=== PATIENT | male | born 1955 | race Caucasian/White ===

== ENCOUNTER 2022-02-24 06:06 | Emergency (ER) | payer OTHER, MEDICAID ==
[~2022-02-24] VITALS: Ht 177.8 cm; Wt 81.6 kg
[2022-02-24 06:10] VITALS: BP_SYST 188
--- NOTE | 2022-02-24 06:23 | NUR ---
PT HERE C/O RT LEG PAIN WITH PURULENT FOUL SMELLING DRAINAGE PER PT HAS BEEN GOING FOR MONTHS NOW. PT DENIES TRAUMA. HE STATED THAT HE IS SELF MEIDCATING AND FOR COUPLE OF DAYS HAS BEEN WORST. NOTED YELLOW DISCOLRATION ON RT LOWER LEG PMH:APPENDECTOMY PT AAOX4, NO SOB NOTED AND NAD. PENDING MD BOOTH
--- NOTE | 2022-02-24 06:40 | NUR ---
Patient to ER bed KELLEY to gown for evaluation. Side rails up. Report given to FRANCY ESTRADA.
--- NOTE | 2022-02-24 06:41 | NUR ---
ER at bedside examining patient.
[2022-02-24] MEDS ORDERED: cefTRIAXone 1 GM in LIDOCAINE 1%, 20 ML MDV 2.1 ML IM ONE (07:00)
[2022-02-24] MEDS ORDERED: FURO-149 PO (07:02)
[2022-02-24] MEDS ORDERED: IBUP-1969 PO (07:02)
[2022-02-24] MEDS ORDERED: SULF1TAB48 PO (07:02)
--- NOTE | 2022-02-24 07:17 | NUR ---
Report given to SEAN Richard to assume care of patient at this time.
--- NOTE | 2022-02-24 07:54 | NUR ---
MEDICATED ORDERED, WILL MONITOR FOR ANY ADVERSE SIDE EFFCTS. PTSITTING UPIN CHAIR IN HALLWAY 1
--- NOTE | 2022-02-24 08:18 | NUR ---
Patient given written and verbal discharge instructions and verbalizes understanding. ER MD discussed with patient the results and treatment provided. Patient in stable condition. ID arm band removed. Rx of LASIX, IBUPROFEN, BACTRIM given. Patient educated on pain management and to follow up with PMD. Pain Scale . Opportunity for questions provided and answered. Medication side effect fact sheet provided.
[2022-02-24 08:19] VITALS: BP_SYST 129
== END 2022-02-24 08:19 | disposition home or self-care (01) ==
LOC: SED 06:06
DX: L03.115 Cellulitis of right lower limb (principal); I87.8 Other specified disorders of veins; Z79.899 Other long term (current) drug therapy
CPT/HCPCS: 99283; 96372; J0696; J2001

== ENCOUNTER 2022-02-26 07:10 | Emergency (ER) | payer OTHER, MEDICAID ==
[~2022-02-26] VITALS: Ht 177.8 cm; Wt 81.6 kg
[2022-02-26 07:10] VITALS: BP_SYST 128
[~2022-02-26 07:10] MED LIST: FURO-149 PO; IBUP-1969 PO; SULF1TAB48 PO
--- NOTE | 2022-02-26 07:25 | NUR ---
BROUGHT BACK TO BED #6 AND REPORT GIVEN TO RICHARD
--- NOTE | 2022-02-26 07:30 | NUR ---
RECEIVED PT FROM SEAN BERNSTEIN. ASSUMED CARE.
--- NOTE | 2022-02-26 07:48 | NUR ---
RECEIVED PT FROM SEAN LEARY. PT HERE FOR WOUND CK ON RIGHT FOOT. PT BLE EDEMA AND REDNESS, WOUND IS WRAPPED AND ODOROUS. PT STATES PAIN IS 4/10 AND TOLERABLE AT THIS TIME.
--- NOTE | 2022-02-26 07:50 | NUR ---
DR. KOENIG AT BEDSIDE TO ASSESS PT.
--- NOTE | 2022-02-26 08:20 | NUR ---
PT RECEIVED WOUND CARE. BLE RINSED WITH NS, PATTED DRY, COVERED WITH ABDOMINAL PADS AND KERLIX. PT TOLERATED PROCEDURE WELL.
[2022-02-26 08:36] VITALS: BP_SYST 127
--- NOTE | 2022-02-26 08:42 | NUR ---
PT REFUSES TO BE ADMITTED FOR TREATMENT, LEAVING AMA, AMA FORM SIGNED AND PLACED IN CHART. Patient given written and verbal discharge instructions and verbalizes understanding. ER MD discussed with patient the results and treatment provided. Patient in stable condition. ID arm band removed. Patient educated on pain management and to follow up with PMD. Pain Scale 4/10. Opportunity for questions provided and answered. Medication side effect fact sheet provided.
== END 2022-02-26 08:42 | disposition left against medical advice (07) ==
LOC: SED 07:10
DX: L08.9 Local infection of the skin and subcutaneous tissue, unspecified (principal); Z79.899 Other long term (current) drug therapy
CPT/HCPCS: 99282; J7030